=== PATIENT | female | born 1965 | race Caucasian/White ===

== ENCOUNTER 2017-06-18 12:58 | Emergency (ER) | payer OTHER, MEDICARE ==
[~2017-06-18] VITALS: Ht 175.3 cm; Wt 87.5 kg
[~2017-06-18 12:58] MED LIST: HYDR1TAB12 PO; HYDR1TAB14 PO; HYDR2TAB29 PO; LINA145C PO; LIPA1CAP2 PO; ONDA4TAB7 PO; PANT40TA3 PO; PROM25TA10 PO
[2017-06-18] MEDS ORDERED: HYDROmorphone 1 MG/ML, 1ML ONE ×3 (13:44→14:48)
[2017-06-18] MEDS ORDERED: FAMOTIDINE 20 MG/2 ML ONE (13:45)
[2017-06-18] MEDS ORDERED: PROMETHAZINE 25 MG/ML, 1ML ONE (13:45)
[2017-06-18] MEDS ORDERED: ONDANSETRON 2MG/ML, 2ML ONE (13:45)
[2017-06-18] MEDS: HYDROmorphone 1 MG/ML, 1ML IVPush PRN ×2 (13:58→14:20)
[2017-06-18] MEDS ORDERED: SODIUM CHLORIDE 0.9% 1,000ML IVBOLUS ONE (14:00)
[2017-06-18] MEDS ORDERED: ONDANSETRON 2MG/ML, 2ML IVPush ONE (14:00)
[2017-06-18] MEDS ORDERED: SODIUM CHLORIDE FLUSH 10ML SYR IVF ONE (14:00)
[2017-06-18] MEDS ORDERED: PROMETHAZINE 25 MG/ML, 1ML IM ONE (14:00)
[2017-06-18] MEDS ORDERED: FAMOTIDINE 20 MG/2 ML IVP ONE (14:00)
[2017-06-18 14:23] LABS: BLOOD UREA NITROGEN 20 mg/dL (7-18)
[2017-06-18 14:27] LABS: ASPARTATE AMINO TRANSFERASE 24 U/L (15-37)
[2017-06-18] MEDS ORDERED: HYDROmorphone 1 MG/ML, 1ML IV ONE (15:00)
[2017-06-18 15:17] VITALS: BP 119/69
== END 2017-06-18 15:19 | disposition home or self-care (01) ==
LOC: ED 15:13
DX: R10.13 Epigastric pain (principal); Z98.51 Tubal ligation status
CPT/HCPCS: 36415; 76700; 80053; 83690; 85025; 93005; 96361; 96372; 96374; 96375; 96376; 99285; J1170; J2405; J2550; J7030; S0028

== ENCOUNTER 2017-09-22 17:02 | Emergency (ER) | payer OTHER, MEDICARE ==
[~2017-09-22] VITALS: Ht 175.3 cm; Wt 87.3 kg
[2017-09-22] MEDS ORDERED: DULO30CA2 PO (17:51)
[2017-09-22] MEDS ORDERED: ZOLP10TA PO (17:51)
[2017-09-22 17:59] LABS: HEMATOCRIT 45.1 % (34.6-47.8); HEMOGLOBIN 15.5 g/dL (11.7-16.4); WHITE BLOOD COUNT 6.4 x10^3/uL (3.4-10)
[2017-09-22] MEDS ORDERED: SODIUM CHLORIDE FLUSH 10ML SYR IVF ONE ×2 (18:00→18:30)
[2017-09-22 18:10] LABS: ASPARTATE AMINO TRANSFERASE 16 U/L (15-37); BLOOD UREA NITROGEN 18 mg/dL (7-18)
[2017-09-22] MEDS ORDERED: HYDROmorphone 1 MG/ML, 1ML IVPush ONE ×2 (18:30→19:30)
[2017-09-22] MEDS ORDERED: PROMETHAZINE 25 MG/ML, 1ML IM ONE (18:30)
[2017-09-22] MEDS ORDERED: HYDROmorphone 1 MG/ML, 1ML ONE ×2 (18:59→19:28)
[2017-09-22] MEDS ORDERED: PROMETHAZINE 25 MG/ML, 1ML ONE (18:59)
[2017-09-22 19:30] VITALS: BP 123/75
== END 2017-09-22 20:27 | disposition home or self-care (01) ==
LOC: ED 19:39
DX: R10.13 Epigastric pain (principal); R11.0 Nausea
CPT/HCPCS: 36415; 80053; 83690; 85025; 96372; 96374; 99284; J1170; J2550

== ENCOUNTER 2017-09-24 13:02 | Emergency (ER) | payer OTHER, MEDICARE ==
[~2017-09-24] VITALS: Ht 175.3 cm; Wt 87.2 kg
[~2017-09-24 13:02] MED LIST changes: +DULO30CA2 PO; +ZOLP10TA PO
[2017-09-24] MEDS ORDERED: SODIUM CHLORIDE 0.9% 1,000 ML IV ONE (15:07)
[2017-09-24] MEDS ORDERED: SODIUM CHLORIDE FLUSH 10ML SYR IVF ONE (15:30)
[2017-09-24] MEDS ORDERED: PROMETHAZINE 25 MG/ML, 1ML IM ONE (15:30)
[2017-09-24] MEDS ORDERED: ONDANSETRON 2MG/ML, 2ML IVPush ONE (15:30)
[2017-09-24] MEDS ORDERED: SODIUM CHLORIDE 0.9% 1,000ML IVBOLUS ONE (15:30)
[2017-09-24] MEDS ORDERED: PROMETHAZINE 25 MG/ML, 1ML ONE (15:57)
[2017-09-24] MEDS: HYDROmorphone 1 MG/ML, 1ML IVPush PRN ×2 (15:57→16:45)
[2017-09-24] MEDS ORDERED: HYDROmorphone 1 MG/ML, 1ML ONE ×3 (15:57→16:50)
[2017-09-24] MEDS ORDERED: ONDANSETRON 2MG/ML, 2ML ONE (15:57)
[2017-09-24 15:58] LABS: HEMATOCRIT 47.5 % (34.6-47.8); HEMOGLOBIN 16.3 g/dL (11.7-16.4); WHITE BLOOD COUNT 7.8 x10^3/uL (3.4-10)
[2017-09-24 16:04] LABS: BLOOD UREA NITROGEN 12 mg/dL (7-18)
[2017-09-24 16:09] LABS: ASPARTATE AMINO TRANSFERASE 33 U/L (15-37)
[2017-09-24] MEDS ORDERED: HYDROmorphone 1 MG/ML, 1ML IV ONE (17:00)
[2017-09-24 17:09] VITALS: BP 124/63
== END 2017-09-24 17:10 | disposition home or self-care (01) ==
LOC: ED 14:25
DX: K86.1 Other chronic pancreatitis (principal); G89.29 Other chronic pain; R10.13 Epigastric pain; Z87.891 Personal history of nicotine dependence; Z88.0 Allergy status to penicillin; Z90.49 Acquired absence of other specified parts of digestive tract
CPT/HCPCS: 36415; 80053; 83690; 85025; 93005; 96361; 96372; 96374; 96375; 99285; J1170; J2405; J2550; J7030

== ENCOUNTER 2018-05-10 18:38 | Emergency (ER) | payer OTHER, MEDICARE ==
[~2018-05-10] VITALS: Ht 175.3 cm; Wt 83.5 kg
[2018-05-10] MEDS ORDERED: PROMETHAZINE 25 MG/ML, 1ML IM ONE (20:30)
[2018-05-10 20:43] LABS: BASOPHILS # (AUTO) 0.03 x10^3/uL (0-0.1); BASOPHILS % (AUTO) 1 % (0-1); EOSINOPHILS # (AUTO) 0.03 x10^3/uL (0-0.4); EOSINOPHILS % (AUTO) 1 % (1-7); LYMPHOCYTES # (AUTO) 1.41 x10^3/uL (1-3.4); LYMPHOCYTES % (AUTO) 30 % (22-44); MD NO; MEAN CORPUSCULAR HGB CONC 34.1 g/dL (32.4-35.8); MEAN CORPUSCULAR VOLUME 88.1 fL (80-100); MEAN PLATELET VOLUME 7.1 fL (7.4-10.4); MONOCYTES # (AUTO) 0.37 x10^3/uL (0.2-0.8); MONOCYTES % (AUTO) 8 % (2-9); NEUTROPHILS % (AUTO) 60 % (42-75); PLATELET COUNT 292 x10^3/uL (130-400); RED BLOOD COUNT 4.27 x10^6/uL (3.82-5.3); RED CELL DISTRIBUTION WIDTH 13.9 % (9.6-15.2)
[2018-05-10] MEDS ORDERED: PROMETHAZINE 25 MG/ML, 1ML ONE (20:49)
[2018-05-10] MEDS ORDERED: HYDROmorphone 2 MG/ML, 1ML ONE (20:50)
[2018-05-10 20:55] LABS: ALANINE AMINOTRANSFERASE 34 U/L (12-78); ALBUMIN 3.8 g/dL (3.4-5.0); ANION GAP 8 mmol/L (5-15); CALCIUM 8.5 mg/dL (8.5-10.1); CHLORIDE 107 mmol/L (98-107); CREATININE 0.77 mg/dL (0.55-1.02)
[2018-05-10 20:58] LABS: ALKALINE PHOSPHATASE 117 U/L (45-117); BILIRUBIN,TOTAL 0.6 mg/dL (0.2-1.0); TOTAL PROTEIN 7.2 g/dL (6.4-8.2)
[2018-05-10] MEDS: HYDROmorphone 1 MG/ML, 1ML IVPush PRN ×2 (21:08→21:59)
[2018-05-10 21:38] LABS: CULTURE INDICATED? YES; MICROSCOPIC INDICATED
[2018-05-10 22:00] VITALS: BP 135/78
== END 2018-05-11 00:53 | disposition home or self-care (01) ==
LOC: ED 23:59
DX: R10.84 Generalized abdominal pain (principal); K86.1 Other chronic pancreatitis; R19.7 Diarrhea, unspecified; R11.2 Nausea with vomiting, unspecified; Z87.891 Personal history of nicotine dependence
CPT/HCPCS: 36415; 74176; 80053; 81001; 83690; 85025; 87086; 96372; 96374; 96376; 99285; J1170; J2550

== ENCOUNTER 2019-07-09 16:39 | Emergency (ER) | payer OTHER, MEDICARE ==
[~2019-07-09] VITALS: Ht 175.3 cm; Wt 92.6 kg
[2019-07-09 22:30] VITALS: BP 129/80
== END 2019-07-09 22:32 | disposition home or self-care (01) ==
LOC: ED 22:30
DX: R10.31 Right lower quadrant pain (principal); R10.11 Right upper quadrant pain; R11.2 Nausea with vomiting, unspecified; R19.7 Diarrhea, unspecified; Z90.49 Acquired absence of other specified parts of digestive tract; Z87.891 Personal history of nicotine dependence
CPT/HCPCS: 36415; 74022; 74177; 80053; 81003; 83690; 84703; 85025; 96372; 96374; 96375; 96376; 99284; J2270; J2405; J2550; Q9967

== ENCOUNTER 2020-06-06 01:27 | Inpatient (IN) | payer OTHER, MEDICARE ==
[~2020-06-06] VITALS: Ht 175.3 cm; Wt 104.3 kg
[~2020-06-06 01:27] MED LIST changes: -HYDR1TAB12 PO; +HYDR1TAB13 PO; -HYDR1TAB14 PO; +HYDR1TAB15 PO
[2020-06-06] MEDS ORDERED: HYDROmorphone 1 MG/ML, 1ML INJ ONE ×3 (01:57→04:19)
[2020-06-06] MEDS ORDERED: ONDANSETRON 2MG/ML, 2ML ONE ×2 (01:57→04:19)
[2020-06-06] MEDS ORDERED: PROMETHAZINE 25 MG/ML, 1ML ONE ×2 (01:57→04:19)
[2020-06-06] MEDS ORDERED: SODIUM CHLORIDE 0.9% 1,000ML IVBOLUS ONE ×3 (02:00→04:30)
[2020-06-06] MEDS ORDERED: ONDANSETRON 2MG/ML, 2ML IVPush ONE ×2 (02:00→04:30)
[2020-06-06] MEDS ORDERED: SODIUM CHLORIDE FLUSH 10ML SYR IVF ONE (02:00)
[2020-06-06] MEDS ORDERED: PROMETHAZINE 25 MG/ML, 1ML IM ONE (02:00)
[2020-06-06] MEDS: HYDROmorphone 2 MG/ML, 1ML IVPush PRN ×8 (02:03→23:17)
[2020-06-06 02:05] LABS: BASOPHILS # (AUTO) 0.01 x10^3/uL (0-0.1); BASOPHILS % (AUTO) 0 % (0-1); EOSINOPHILS % (AUTO) 3 % (1-7); LYMPHOCYTES % (AUTO) 12 % (22-44); MD NO; MEAN CORPUSCULAR HEMOGLOBIN 31.1 pg (27.0-34.8); MEAN CORPUSCULAR HGB CONC 33.9 g/dL (32.4-35.8); MEAN CORPUSCULAR VOLUME 91.9 fL (80-100); MEAN PLATELET VOLUME 7.4 fL (7.4-10.4); MONOCYTES # (AUTO) 0.39 x10^3/uL (0.2-0.8); MONOCYTES % (AUTO) 3 % (2-9); NEUTROPHILS # (AUTO) 10.18 x10^3/uL (1.8-6.8); NEUTROPHILS % (AUTO) 82 % (42-75); PLATELET COUNT 339 x10^3/uL (130-400); RED BLOOD COUNT 4.71 x10^6/uL (3.82-5.3); RED CELL DISTRIBUTION WIDTH 13.1 % (9.6-15.2)
[2020-06-06 02:12] LABS: MICROSCOPIC NOT IND
[2020-06-06 02:14] LABS: ALANINE AMINOTRANSFERASE 75 U/L (12-78); ALBUMIN 4.1 g/dL (3.4-5.0); ANION GAP 6 mmol/L (5-15); CHLORIDE 110 mmol/L (98-107); CREATININE 1.11 mg/dL (0.55-1.02)
[2020-06-06 02:17] LABS: ALKALINE PHOSPHATASE 99 U/L (45-117); BILIRUBIN,TOTAL 0.6 mg/dL (0.2-1.0); TOTAL PROTEIN 7.9 g/dL (6.4-8.2)
--- NOTE | 2020-06-06 02:17 | NUR ---
C/O UPPER ABDOMINAL PAIN RADIATES TO BACK AND CHEST X 1 DAY, WORSENING. HX OF PANCREATITIS. + N/V. PIV PLACED, LABS DRAWN AND PT MEDICATED FOR PAIN PER EMAR. PT NOW RESTING COMFORTABLY.
[2020-06-06] MEDS ORDERED: HYDROmorphone 2 MG/ML, 1ML ONE (02:43)
--- NOTE | 2020-06-06 02:46 | NUR ---
task rn: pt medicated per MAR for pain in upper abdomen, pt back from CT, [place] at bedside, [place], NAD, VSS, placed on 2L NC as precaution.
[2020-06-06] MEDS ORDERED: PROMETHAZINE 25 MG/ML, 1ML IM STA (04:15)
[2020-06-06] MEDS ORDERED: DULO60CA7 PO (04:30)
[2020-06-06] MEDS ORDERED: SODIUM CHLORIDE 0.9% 1,000 ML IV SCH (04:39)
[2020-06-06] MEDS ORDERED: KETOROLAC 30 MG/1 ML IV PRN (05:00)
[2020-06-06] MEDS ORDERED: hydrALAzine 20 MG/ML, 1ML IVPush PRN (05:00)
[2020-06-06] MEDS ORDERED: HYDROmorphone 2 MG/ML, 1ML IVPush PRN (05:00)
[2020-06-06] MEDS ORDERED: ENOXAPARIN 40 MG/0.4 ML SQ SCH (05:00)
[2020-06-06] MEDS ORDERED: METHOCARBAMOL 500 MG TABLET PO PRN (05:00)
[2020-06-06] MEDS ORDERED: GUAIFENESIN/DM 200-20MG, 10ML UDC PO PRN (05:00)
[2020-06-06] MEDS ORDERED: ZOLPIDEM 10MG TABLET PO PRN (05:00)
[2020-06-06] MEDS ORDERED: ACETAMINOPHEN 325 MG TABLET PO PRN (05:00)
--- NOTE | 2020-06-06 05:15 | NUR ---
REPORT TO MACO ABREU
[2020-06-06 05:25] LABS: TRIGLYCERIDES 134 mg/dL (50-200); TROPONIN I < 0.015 ng/mL (0.000-0.045)
[2020-06-06 05:34] VITALS: BP 117/73
[2020-06-06] MEDS ORDERED: OMNIPAQUE 350 MG/ML, 100ML BOTTLE ONE (05:48)
[2020-06-06 08:25] VITALS: BP 102/66
[2020-06-06] MEDS: TEMPLATE NON-FORMULARY MED. (Linaclotide** (Linzess**) 145 MCG) HOMEMEDPO SCH (09:00)
[2020-06-06] MEDS: ONDANSETRON 2MG/ML, 2ML IVPush PRN ×2 (09:05→23:23)
[2020-06-06] MEDS: FAMOTIDINE 20 MG/2 ML IVPush SCH ×2 (09:05→20:54)
[2020-06-06] MEDS: DULOXETINE 30 MG CAPSULE.DR PO SCH (09:08)
[2020-06-06] MEDS: LACTOBACILLUS CHEW TABLET PO SCH ×3 (09:10→20:54)
[2020-06-06] MEDS: PANCRELIPASE 24,000 CAPSULE.DR PO SCH ×2 (09:10→20:54)
[2020-06-06] MEDS: HEPARIN 5,000 UNITS/ML, 1ML SQ SCH ×2 (09:13→16:46)
[2020-06-06] MEDS: ACETAMINOPHEN 325 MG TABLET PO SCH ×3 (11:27→23:16)
[2020-06-06 15:22] VITALS: BP 100/65
[2020-06-06 18:23] VITALS: BP 107/71
[2020-06-07 00:48] VITALS: BP 108/70
[2020-06-07] MEDS: SODIUM CHLORIDE 0.9% 1,000 ML IV SCH ×3 (01:49→23:04)
[2020-06-07] MEDS: HEPARIN 5,000 UNITS/ML, 1ML SQ SCH ×3 (01:49→16:38)
[2020-06-07] MEDS: ACETAMINOPHEN 325 MG TABLET PO SCH ×3 (05:32→19:29)
[2020-06-07] MEDS: HYDROmorphone 2 MG/ML, 1ML IVPush PRN ×5 (05:32→20:05)
[2020-06-07 05:55] LABS: CHLORIDE 115 mmol/L (98-107)
[2020-06-07 06:05] LABS: ANION GAP 8 mmol/L (5-15); BASOPHILS # (AUTO) 0.03 x10^3/uL (0-0.1); BASOPHILS % (AUTO) 1 % (0-1); CREATININE 0.69 mg/dL (0.55-1.02); EOSINOPHILS % (AUTO) 4 % (1-7); LYMPHOCYTES # (AUTO) 1.07 x10^3/uL (1-3.4); LYMPHOCYTES % (AUTO) 22 % (22-44); MD NO; MEAN CORPUSCULAR HEMOGLOBIN 30.7 pg (27.0-34.8); MEAN CORPUSCULAR HGB CONC 32.6 g/dL (32.4-35.8); MEAN PLATELET VOLUME 7.1 fL (7.4-10.4); MONOCYTES # (AUTO) 0.29 x10^3/uL (0.2-0.8); MONOCYTES % (AUTO) 6 % (2-9); NEUTROPHILS # (AUTO) 3.21 x10^3/uL (1.8-6.8); NEUTROPHILS % (AUTO) 67 % (42-75); PLATELET COUNT 206 x10^3/uL (130-400); RED BLOOD COUNT 3.95 x10^6/uL (3.82-5.3); RED CELL DISTRIBUTION WIDTH 12.9 % (9.6-15.2)
[2020-06-07 06:55] VITALS: BP 116/76
[2020-06-07] MEDS ORDERED: POTASSIUM CHLORIDE 20 MEQ TAB.ER.PRT PO ONE (07:30)
[2020-06-07] MEDS: TEMPLATE NON-FORMULARY MED. (Linaclotide** (Linzess**) 145 MCG) HOMEMEDPO SCH (07:52)
[2020-06-07] MEDS: ONDANSETRON 2MG/ML, 2ML IVPush PRN ×2 (08:27→16:41)
[2020-06-07] MEDS: DULOXETINE 30 MG CAPSULE.DR PO SCH (08:28)
[2020-06-07] MEDS: FAMOTIDINE 20 MG/2 ML IVPush SCH ×2 (08:28→20:05)
[2020-06-07] MEDS: PANCRELIPASE 24,000 CAPSULE.DR PO SCH ×2 (08:28→20:05)
[2020-06-07] MEDS: LACTOBACILLUS CHEW TABLET PO SCH ×3 (08:28→20:11)
[2020-06-07 12:58] VITALS: BP 129/83
[2020-06-07 19:27] VITALS: BP 125/84
[2020-06-08] MEDS: ACETAMINOPHEN 325 MG TABLET PO SCH ×4 (02:58→22:39)
[2020-06-08] MEDS: HEPARIN 5,000 UNITS/ML, 1ML SQ SCH ×3 (02:58→17:31)
[2020-06-08] MEDS: HYDROmorphone 2 MG/ML, 1ML IVPush PRN ×5 (02:58→20:40)
[2020-06-08 02:59] VITALS: BP 133/81
[2020-06-08 04:57] LABS: ANION GAP 9 mmol/L (5-15); CALCIUM 8.1 mg/dL (8.5-10.1); CHLORIDE 109 mmol/L (98-107); CREATININE 0.61 mg/dL (0.55-1.02)
[2020-06-08 07:20] VITALS: BP 120/79
[2020-06-08] MEDS: TEMPLATE NON-FORMULARY MED. (Linaclotide** (Linzess**) 145 MCG) HOMEMEDPO SCH (07:38)
[2020-06-08] MEDS: SODIUM CHLORIDE 0.9% 1,000 ML IV SCH (09:20)
[2020-06-08] MEDS: DULOXETINE 30 MG CAPSULE.DR PO SCH (09:55)
[2020-06-08] MEDS: LACTOBACILLUS CHEW TABLET PO SCH ×3 (09:55→20:40)
[2020-06-08] MEDS: PANCRELIPASE 24,000 CAPSULE.DR PO SCH ×2 (09:55→20:39)
[2020-06-08] MEDS: FAMOTIDINE 20 MG/2 ML IVPush SCH ×2 (09:55→20:40)
[2020-06-08] MEDS: ONDANSETRON 2MG/ML, 2ML IVPush PRN ×2 (10:15→17:31)
[2020-06-08] MEDS: PROMETHAZINE 25 MG/ML, 1ML IM PRN ×2 (14:19→20:40)
[2020-06-08 14:20] VITALS: BP 118/73
[2020-06-08] MEDS: KETOROLAC 30 MG/1 ML IV PRN ×2 (15:53→22:39)
[2020-06-08 21:21] VITALS: BP 122/78
[2020-06-08] MEDS ORDERED: PROMETHAZINE 25 MG/ML, 1ML ONE (22:17)
[2020-06-09] MEDS: HEPARIN 5,000 UNITS/ML, 1ML SQ SCH ×3 (00:41→16:36)
[2020-06-09] MEDS: ONDANSETRON 2MG/ML, 2ML IVPush PRN ×3 (00:41→16:35)
[2020-06-09] MEDS: HYDROmorphone 2 MG/ML, 1ML IVPush PRN ×4 (00:42→21:00)
[2020-06-09 00:46] VITALS: BP 112/68
[2020-06-09] MEDS: KETOROLAC 30 MG/1 ML IV PRN ×3 (06:02→19:54)
[2020-06-09] MEDS: PROMETHAZINE 25 MG/ML, 1ML IM PRN ×2 (06:02→12:03)
[2020-06-09] MEDS: ACETAMINOPHEN 325 MG TABLET PO SCH ×3 (06:02→16:35)
[2020-06-09 07:05] VITALS: BP 120/76
[2020-06-09] MEDS: TEMPLATE NON-FORMULARY MED. (Linaclotide** (Linzess**) 145 MCG) HOMEMEDPO SCH (07:59)
[2020-06-09] MEDS: FAMOTIDINE 20 MG/2 ML IVPush SCH ×2 (09:25→20:59)
[2020-06-09] MEDS: LACTOBACILLUS CHEW TABLET PO SCH ×3 (09:26→20:59)
[2020-06-09] MEDS: PANCRELIPASE 24,000 CAPSULE.DR PO SCH ×2 (09:26→21:05)
[2020-06-09] MEDS: DULOXETINE 30 MG CAPSULE.DR PO SCH (09:26)
[2020-06-09] MEDS ORDERED: LORazepam 1MG TABLET PO PRN (10:30)
[2020-06-09 14:00] VITALS: BP 120/75
[2020-06-09] MEDS: SODIUM CHLORIDE 0.9% 1,000 ML IV SCH (16:36)
[2020-06-09 19:49] VITALS: BP 96/60
[2020-06-10] MEDS: ACETAMINOPHEN 325 MG TABLET PO SCH ×3 (00:57→15:05)
[2020-06-10] MEDS: HEPARIN 5,000 UNITS/ML, 1ML SQ SCH (00:57)
[2020-06-10] MEDS: HYDROmorphone 2 MG/ML, 1ML IVPush PRN ×4 (01:01→21:24)
[2020-06-10 02:14] VITALS: BP 112/68
[2020-06-10] MEDS: SODIUM CHLORIDE 0.9% 1,000 ML IV SCH ×2 (07:23→19:56)
[2020-06-10 08:21] VITALS: BP 128/79
[2020-06-10] MEDS: TEMPLATE NON-FORMULARY MED. (Linaclotide** (Linzess**) 145 MCG) HOMEMEDPO SCH (09:00)
[2020-06-10] MEDS: ENOXAPARIN 40 MG/0.4 ML SQ SCH (09:07)
[2020-06-10] MEDS: FAMOTIDINE 20 MG/2 ML IVPush SCH (09:07)
[2020-06-10] MEDS: PANCRELIPASE 24,000 CAPSULE.DR PO SCH ×2 (09:07→16:36)
[2020-06-10] MEDS: LACTOBACILLUS CHEW TABLET PO SCH ×3 (09:07→19:57)
[2020-06-10] MEDS: DULOXETINE 30 MG CAPSULE.DR PO SCH (09:07)
[2020-06-10 09:13] LABS: ALBUMIN 3.3 g/dL (3.4-5.0); ANION GAP 9 mmol/L (5-15); CALCIUM 8.6 mg/dL (8.5-10.1); CHLORIDE 111 mmol/L (98-107)
[2020-06-10] MEDS: ONDANSETRON 2MG/ML, 2ML IVPush PRN ×2 (09:17→21:24)
[2020-06-10 09:19] LABS: ALANINE AMINOTRANSFERASE 98 U/L (12-78); ALKALINE PHOSPHATASE 156 U/L (45-117); CREATININE 0.67 mg/dL (0.55-1.02); TOTAL PROTEIN 7.2 g/dL (6.4-8.2)
[2020-06-10] MEDS: PROMETHAZINE 25 MG/ML, 1ML IM PRN (10:22)
[2020-06-10 15:59] VITALS: BP 131/84
[2020-06-10 18:35] VITALS: BP 127/81
[2020-06-10] MEDS ORDERED: FAMOTIDINE 40 MG TABLET ONE (19:51)
[2020-06-10] MEDS: FAMOTIDINE 20 MG TABLET PO SCH (19:57)
[2020-06-11 00:59] VITALS: BP 125/81
[2020-06-11] MEDS: HYDROmorphone 2 MG/ML, 1ML IVPush PRN ×5 (03:52→20:24)
[2020-06-11 05:46] LABS: BASOPHILS # (AUTO) 0.03 x10^3/uL (0-0.1); BASOPHILS % (AUTO) 1 % (0-1); EOSINOPHILS # (AUTO) 0.34 x10^3/uL (0-0.4); EOSINOPHILS % (AUTO) 9 % (1-7); LYMPHOCYTES # (AUTO) 1.15 x10^3/uL (1-3.4); LYMPHOCYTES % (AUTO) 29 % (22-44); MD NO; MEAN CORPUSCULAR HEMOGLOBIN 30.5 pg (27.0-34.8); MEAN CORPUSCULAR HGB CONC 32.7 g/dL (32.4-35.8); MEAN CORPUSCULAR VOLUME 93.4 fL (80-100); MONOCYTES # (AUTO) 0.32 x10^3/uL (0.2-0.8); MONOCYTES % (AUTO) 8 % (2-9); NEUTROPHILS # (AUTO) 2.13 x10^3/uL (1.8-6.8); NEUTROPHILS % (AUTO) 54 % (42-75); PLATELET COUNT 238 x10^3/uL (130-400); RED BLOOD COUNT 4.33 x10^6/uL (3.82-5.3); RED CELL DISTRIBUTION WIDTH 12.8 % (9.6-15.2)
[2020-06-11 05:56] LABS: CHLORIDE 110 mmol/L (98-107)
[2020-06-11 06:06] LABS: ALANINE AMINOTRANSFERASE 97 U/L (12-78); ALBUMIN 3.2 g/dL (3.4-5.0); ALKALINE PHOSPHATASE 160 U/L (45-117); ANION GAP 10 mmol/L (5-15); BILIRUBIN,TOTAL 0.7 mg/dL (0.2-1.0); CALCIUM 8.9 mg/dL (8.5-10.1)
[2020-06-11] MEDS ORDERED: POTASSIUM CHLORIDE 40 MEQ in SODIUM CHLORIDE 0.9% 500 ML IV ONE (06:30)
[2020-06-11] MEDS: SODIUM CHLORIDE 0.9% 1,000 ML IV SCH (06:42)
[2020-06-11 07:01] VITALS: BP 115/78
[2020-06-11] MEDS: PANCRELIPASE 24,000 CAPSULE.DR PO SCH ×3 (07:02→16:41)
[2020-06-11] MEDS ORDERED: METHYLNALTREXONE 12 MG/0.6 ML SYR SQ ONE (08:00)
[2020-06-11] MEDS: ENOXAPARIN 40 MG/0.4 ML SQ SCH (08:03)
[2020-06-11] MEDS: LACTOBACILLUS CHEW TABLET PO SCH ×3 (08:03→20:22)
[2020-06-11] MEDS: ONDANSETRON 2MG/ML, 2ML IVPush PRN ×2 (08:03→20:22)
[2020-06-11] MEDS: FAMOTIDINE 20 MG TABLET PO SCH ×2 (08:03→20:22)
[2020-06-11] MEDS: DULOXETINE 30 MG CAPSULE.DR PO SCH (08:03)
[2020-06-11] MEDS: TEMPLATE NON-FORMULARY MED. (Linaclotide** (Linzess**) 145 MCG) HOMEMEDPO SCH (09:00)
[2020-06-11] MEDS: PROMETHAZINE 25 MG/ML, 1ML IM PRN (12:22)
[2020-06-11 13:37] VITALS: BP 124/79
[2020-06-11 19:29] VITALS: BP 114/78
[2020-06-12] MEDS: SODIUM CHLORIDE 0.9% 1,000 ML IV SCH
[2020-06-12 00:21] VITALS: BP 101/68
[2020-06-12 04:43] LABS: ALANINE AMINOTRANSFERASE 117 U/L (12-78); ALBUMIN 3.4 g/dL (3.4-5.0); ANION GAP 4 mmol/L (5-15); CALCIUM 9.4 mg/dL (8.5-10.1); CHLORIDE 111 mmol/L (98-107)
[2020-06-12 04:46] LABS: ALKALINE PHOSPHATASE 176 U/L (45-117); BILIRUBIN,TOTAL 0.4 mg/dL (0.2-1.0); TOTAL PROTEIN 6.8 g/dL (6.4-8.2)
[2020-06-12 06:49] VITALS: BP 126/83
[2020-06-12] MEDS: ENOXAPARIN 40 MG/0.4 ML SQ SCH (07:47)
[2020-06-12] MEDS: LACTOBACILLUS CHEW TABLET PO SCH ×3 (07:47→20:33)
[2020-06-12] MEDS: PANCRELIPASE 24,000 CAPSULE.DR PO SCH ×3 (07:47→16:28)
[2020-06-12] MEDS: FAMOTIDINE 20 MG TABLET PO SCH ×2 (07:47→20:33)
[2020-06-12] MEDS: ONDANSETRON 2MG/ML, 2ML IVPush PRN ×2 (07:47→15:13)
[2020-06-12] MEDS: DULOXETINE 30 MG CAPSULE.DR PO SCH (07:47)
[2020-06-12] MEDS: HYDROmorphone 2 MG/ML, 1ML IVPush PRN ×4 (07:48→20:33)
[2020-06-12] MEDS: TEMPLATE NON-FORMULARY MED. (Linaclotide** (Linzess**) 145 MCG) HOMEMEDPO SCH (07:48)
[2020-06-12] MEDS: PROMETHAZINE 25 MG/ML, 1ML IM PRN ×2 (08:23→15:13)
[2020-06-12] MEDS ORDERED: GLYCERIN ADULT SUPP PR ONE (08:30)
[2020-06-12] MEDS: SIMETHICONE 125 MG CHEW TAB PO SCH ×3 (11:06→20:33)
[2020-06-12 12:41] VITALS: BP 113/77
[2020-06-12 18:56] VITALS: BP 111/72
[2020-06-13 01:31] VITALS: BP 101/68
[2020-06-13] MEDS ORDERED: SODIUM CHLORIDE 0.9% 1,000 ML IV SCH (04:39)
[2020-06-13 06:37] VITALS: BP 122/81
[2020-06-13] MEDS: PANCRELIPASE 24,000 CAPSULE.DR PO SCH ×3 (07:31→16:25)
[2020-06-13] MEDS: LACTOBACILLUS CHEW TABLET PO SCH ×3 (07:31→21:23)
[2020-06-13] MEDS: DULOXETINE 30 MG CAPSULE.DR PO SCH (07:31)
[2020-06-13] MEDS: FAMOTIDINE 20 MG TABLET PO SCH ×2 (07:31→21:23)
[2020-06-13] MEDS: ENOXAPARIN 40 MG/0.4 ML SQ SCH (07:32)
[2020-06-13] MEDS: TEMPLATE NON-FORMULARY MED. (Linaclotide** (Linzess**) 145 MCG) HOMEMEDPO SCH (07:32)
[2020-06-13] MEDS: SIMETHICONE 125 MG CHEW TAB PO SCH ×4 (07:32→21:23)
[2020-06-13] MEDS: DOCUSATE 100 MG CAPSULE PO PRN (07:33)
[2020-06-13] MEDS: ONDANSETRON 2MG/ML, 2ML IVPush PRN ×2 (07:42→17:09)
[2020-06-13] MEDS: HYDROmorphone 2 MG/ML, 1ML IVPush PRN ×5 (07:42→21:24)
[2020-06-13] MEDS: POLYETHYLENE GLYCOL 17 GM PACKET PO SCH (11:47)
[2020-06-13] MEDS: LACTULOSE 20 GM/30 ML UDC PO SCH ×3 (11:47→21:22)
[2020-06-13] MEDS: SENNOSIDES 8.8 MG/5 ML ORAL SOL PO SCH ×2 (11:48→21:24)
[2020-06-13] MEDS: PROMETHAZINE 25 MG/ML, 1ML IM PRN ×2 (11:49→21:37)
[2020-06-13 14:47] VITALS: BP 113/77
[2020-06-13 20:18] VITALS: BP 102/81
[2020-06-14 00:20] VITALS: BP 106/72
[2020-06-14] MEDS: HYDROmorphone 2 MG/ML, 1ML IVPush PRN ×6 (03:55→21:25)
[2020-06-14 06:11] LABS: CALCIUM 8.8 mg/dL (8.5-10.1); CHLORIDE 110 mmol/L (98-107)
[2020-06-14 06:18] LABS: ALANINE AMINOTRANSFERASE 91 U/L (12-78); ALBUMIN 3.2 g/dL (3.4-5.0); ALKALINE PHOSPHATASE 163 U/L (45-117); ANION GAP 5 mmol/L (5-15); BILIRUBIN,TOTAL 0.4 mg/dL (0.2-1.0); CREATININE 0.86 mg/dL (0.55-1.02); TOTAL PROTEIN 6.5 g/dL (6.4-8.2)
[2020-06-14] MEDS ORDERED: METHYLNALTREXONE 12 MG/0.6 ML SYR SQ ONE (06:30)
[2020-06-14 06:47] VITALS: BP 109/73
[2020-06-14] MEDS: SIMETHICONE 125 MG CHEW TAB PO SCH ×4 (07:15→20:39)
[2020-06-14] MEDS: PANCRELIPASE 24,000 CAPSULE.DR PO SCH ×3 (07:15→16:25)
[2020-06-14] MEDS: ONDANSETRON 2MG/ML, 2ML IVPush PRN ×3 (07:41→21:24)
[2020-06-14] MEDS: TEMPLATE NON-FORMULARY MED. (Linaclotide** (Linzess**) 145 MCG) HOMEMEDPO SCH (09:00)
[2020-06-14] MEDS: FAMOTIDINE 20 MG TABLET PO SCH ×2 (10:48→20:39)
[2020-06-14] MEDS: LACTULOSE 20 GM/30 ML UDC PO SCH ×4 (10:48→20:39)
[2020-06-14] MEDS: DULOXETINE 30 MG CAPSULE.DR PO SCH (10:48)
[2020-06-14] MEDS: LACTOBACILLUS CHEW TABLET PO SCH ×3 (10:48→20:39)
[2020-06-14] MEDS: METOCLOPRAMIDE 5 MG/ML, 2ML IVPush SCH ×3 (10:49→23:21)
[2020-06-14] MEDS: ENOXAPARIN 40 MG/0.4 ML SQ SCH (10:49)
[2020-06-14] MEDS ORDERED: LACTATED RINGERS 1,000 ML IV SCH (11:30)
[2020-06-14] MEDS: DOCUSATE 100 MG CAPSULE PO PRN (11:36)
[2020-06-14] MEDS: POLYETHYLENE GLYCOL 17 GM PACKET PO SCH (11:36)
[2020-06-14 13:21] VITALS: BP 119/76
[2020-06-14] MEDS: SENNOSIDES 8.8 MG/5 ML ORAL SOL PO SCH ×2 (14:29→20:39)
[2020-06-14] MEDS ORDERED: PINK LADY ENEMA 490 ML BOTTLE PR ONE (14:30)
[2020-06-14] MEDS ORDERED: BISACODYL 10 MG SUPP PR PRN (16:00)
[2020-06-14 18:44] VITALS: BP 126/76
[2020-06-15 00:04] VITALS: BP 107/69
[2020-06-15] MEDS: HYDROmorphone 2 MG/ML, 1ML IVPush PRN ×7 (01:36→20:03)
[2020-06-15] MEDS: DOCUSATE 100 MG CAPSULE PO PRN (01:39)
[2020-06-15] MEDS: METOCLOPRAMIDE 5 MG/ML, 2ML IVPush SCH ×4 (05:49→23:33)
[2020-06-15 06:30] VITALS: BP 106/73
[2020-06-15] MEDS: PANCRELIPASE 24,000 CAPSULE.DR PO SCH ×3 (06:36→16:40)
[2020-06-15] MEDS: SIMETHICONE 125 MG CHEW TAB PO SCH ×4 (06:36→20:05)
[2020-06-15] MEDS ORDERED: METHYLNALTREXONE 12 MG/0.6 ML SYR SQ ONE (09:00)
[2020-06-15] MEDS ORDERED: GLYCERIN ADULT SUPP PR ONE (09:00)
[2020-06-15] MEDS: ENOXAPARIN 40 MG/0.4 ML SQ SCH (09:01)
[2020-06-15] MEDS: TEMPLATE NON-FORMULARY MED. (Linaclotide** (Linzess**) 145 MCG) HOMEMEDPO SCH (09:01)
[2020-06-15] MEDS: SENNOSIDES 8.8 MG/5 ML ORAL SOL PO SCH ×2 (09:02→20:05)
[2020-06-15] MEDS: POLYETHYLENE GLYCOL 17 GM PACKET PO SCH (09:02)
[2020-06-15] MEDS: LACTOBACILLUS CHEW TABLET PO SCH ×3 (09:02→20:05)
[2020-06-15] MEDS: LACTULOSE 20 GM/30 ML UDC PO SCH ×3 (09:02→20:05)
[2020-06-15] MEDS: DULOXETINE 30 MG CAPSULE.DR PO SCH (09:02)
[2020-06-15] MEDS: FAMOTIDINE 20 MG TABLET PO SCH ×2 (09:02→20:05)
[2020-06-15] MEDS: PROMETHAZINE 25 MG/ML, 1ML IM PRN (10:56)
[2020-06-15 14:34] VITALS: BP 116/75
[2020-06-15] MEDS ORDERED: PINK LADY ENEMA 490 ML BOTTLE PR ONE (15:00)
[2020-06-15] MEDS: ONDANSETRON 2MG/ML, 2ML IVPush PRN (16:47)
[2020-06-15 19:11] VITALS: BP 115/77
[2020-06-16] MEDS: HYDROmorphone 2 MG/ML, 1ML IVPush PRN (00:13)
[2020-06-16] MEDS: PROMETHAZINE 25 MG/ML, 1ML IM PRN (00:14)
[2020-06-16 00:20] VITALS: BP 121/77
[2020-06-16] MEDS: METOCLOPRAMIDE 5 MG/ML, 2ML IVPush SCH ×2 (05:58→11:25)
[2020-06-16 07:55] VITALS: BP 117/80
[2020-06-16] MEDS: DULOXETINE 30 MG CAPSULE.DR PO SCH (08:02)
[2020-06-16] MEDS: ENOXAPARIN 40 MG/0.4 ML SQ SCH (08:02)
[2020-06-16] MEDS: SIMETHICONE 125 MG CHEW TAB PO SCH ×2 (08:02→11:00)
[2020-06-16] MEDS: PANCRELIPASE 24,000 CAPSULE.DR PO SCH ×2 (08:02→11:00)
[2020-06-16] MEDS: TEMPLATE NON-FORMULARY MED. (Linaclotide** (Linzess**) 145 MCG) HOMEMEDPO SCH (08:02)
[2020-06-16] MEDS: FAMOTIDINE 20 MG TABLET PO SCH (08:03)
[2020-06-16] MEDS: LACTOBACILLUS CHEW TABLET PO SCH (08:03)
[2020-06-16] MEDS: POLYETHYLENE GLYCOL 17 GM PACKET PO SCH (08:03)
[2020-06-16] MEDS: LACTULOSE 20 GM/30 ML UDC PO SCH (08:03)
[2020-06-16] MEDS: SENNOSIDES 8.8 MG/5 ML ORAL SOL PO SCH (08:09)
[2020-06-16] MEDS ORDERED: LACT20SO13 PO (08:13)
[2020-06-16] MEDS ORDERED: LIPA1CAP2 PO (08:13)
[2020-06-16] MEDS ORDERED: METO10TA82 PO (08:16)
[2020-06-16] MEDS ORDERED: HYDROmorphone 4MG TABLET PO ONE (10:00)
[2020-06-16] MEDS ORDERED: HYDROmorphone 2MG TABLET ONE (10:03)
== END 2020-06-16 11:28 | disposition home or self-care (01) | DRG 439 ==
LOC: ED 03:26 → OBSVTOIN 04:16 → EDIP 04:16 → INTOOBSV 04:16 → 3N 05:41 → DCLOUNGE 06-16 11:22
PROVIDERS: ADMIT Internal Medicine; ATTEND Hospitalist
DX: K85.90 Acute pancreatitis without necrosis or infection, unspecified (principal); N17.9 Acute kidney failure, unspecified; E66.9 Obesity, unspecified; E87.6 Hypokalemia; E87.8 Other disorders of electrolyte and fluid balance, not elsewhere classified; F12.90 Cannabis use, unspecified, uncomplicated; F32.9 Major depressive disorder, single episode, unspecified; G47.00 Insomnia, unspecified; K86.1 Other chronic pancreatitis; G89.29 Other chronic pain; K58.1 Irritable bowel syndrome with constipation; M79.7 Fibromyalgia; Z90.411 Acquired partial absence of pancreas; Z87.891 Personal history of nicotine dependence; Z91.013 Allergy to seafood; Z88.0 Allergy status to penicillin; Z88.7 Allergy status to serum and vaccine; Z98.51 Tubal ligation status; Z68.33 Body mass index [BMI] 33.0-33.9, adult
CPT/HCPCS: 36415; 74018; 74177; 74181; 80048; 80053; 80074; 81003; 82150; 83690; 83735; 84478; 84484; 85025; 93005; 96372; 96374; 96376; G0378; J1170; J1644; J1650; J1885; J2405; J2550; J3480; Q9967; J2765; J3490; J7030; J7040; J7120